=== PATIENT | male | born 1955 | race Caucasian/White ===

== ENCOUNTER → 2021-09-20 | Day surgery (SDC) | payer MEDICARE, OTHER | END | disposition home or self-care (01) | LOC: MSO 08:01 | DX: Z12.11 Encounter for screening for malignant neoplasm of colon (principal); Z83.71 Family history of colonic polyps; Q85.8 Other phakomatoses, not elsewhere classified; K22.2 Esophageal obstruction; K21.00 Gastro-esophageal reflux disease with esophagitis, without bleeding; E78.2 Mixed hyperlipidemia; M10.9 Gout, unspecified | CPT/HCPCS: 00813; C1769; J2704; J3010; J7120 ==